=== PATIENT | female | born 1945 | race Caucasian/White ===

== ENCOUNTER 2016-07-07 10:48 | Outpatient (CLI) | payer OTHER ==
--- NOTE | 2016-07-07 11:19 | DIAGNOSTIC IMAGING REPORT ---
PROCEDURE: MG BILATERAL SCREENING W/CAD INDICATION: Screening. Previous left breast biopsy (benign fibroadenoma). TECHNIQUE: Bilateral CC and MLO digital views. COMPARISON: Compared to 07/03/2015, 02/06/2015, and 07/25/2014. Comparison is also made to outside screening mammogram on 06/25/2014 and 06/19/2013. FINDINGS: Computer-aided detection applied. Moderately dense and mildly nodular with stable 6 mm nodule in the lower outer left breast consistent with benign fibroadenoma (previously biopsied). No change. IMPRESSION: 1. Negative mammogram RESULT CODE: 1- Negative. A. A negative report should not delay biopsy if a dominant or clinically suspicious mass is present. 10-15% of cancers are not identified by x-ray. B. A negative report may reinforce clinical impression. C. Adenosis and dense breasts may obscure an underlying neoplasm. D. False positive reports average 6-10%. E.. A yearly screening mammogram is recommended. A reminder letter will be scheduled.
== END 2016-07-07 23:00 ==
LOC: MAM SRH 10:48
DX: Z12.31 Encounter for screening mammogram for malignant neoplasm of breast (principal)